=== PATIENT | male | born 1980 | race Caucasian/White ===

== ENCOUNTER 2020-01-23 19:20 | Emergency (ER) | payer OTHER ==
[~2020-01-23] VITALS: Ht 170.2 cm; Wt 69.7 kg
[2020-01-23 19:26] VITALS: BP 151/108
--- NOTE | 2020-01-23 19:33 | NUR ---
LEFT WRIST SPLINT IN PLACE. DENIES NUMBNESS/TINGLING. CAPILLARY REFILL LESS THAN 3 SECONDS.
--- NOTE | 2020-01-23 20:20 | NUR ---
PT AMBULATES FROM LOBBY TO ROOM WITH STEADY GAIT.
[2020-01-23] MEDS ORDERED: HYDROmorphone 1 MG/ML, 1ML INJ ONE ×2 (21:21→22:03)
[2020-01-23] MEDS ORDERED: LIDOCAINE-MPF 1%, 5ML ONE ×2 (21:21→23:05)
[2020-01-23] MEDS ORDERED: LIDOCAINE-MPF 1%, 5ML INFIL ONE (21:30)
[2020-01-23] MEDS ORDERED: HYDROmorphone 1 MG/ML, 1ML INJ IM ONE ×2 (21:30→23:30)
--- NOTE | 2020-01-23 21:38 | NUR ---
PT MEDICATED PER MAR.
[2020-01-23] MEDS ORDERED: NEOSPORIN OINT. PKT 1 PACKET ONE (23:22)
--- NOTE | 2020-01-23 23:24 | NUR ---
PT SUTURED AND TECH AT BS FOR ORTHO CARE AT THIS TIME.
--- NOTE | 2020-01-23 23:49 | NUR ---
PT D/C WITH D/C SUMMARY AND SCRIPTS. ALL QUESTIONS ANSWERED. PT SIGNED NARCOTICS SHEET WHICH WAS PLACED WITH PT CHART. PT DENIES ANY OTHER NEEDS PERTAINING TO THIS VISIT. PT AMBULATES TO REGISTRATION DESK WITH STEADY GAIT FOR D/C HOME WITH BROTHER IN LAW.
== END 2020-01-23 23:55 | disposition home or self-care (01) ==
LOC: ED 23:00
DX: S61.522A Laceration with foreign body of left wrist, initial encounter (principal); S61.542A Puncture wound with foreign body of left wrist, initial encounter; G89.11 Acute pain due to trauma; F17.210 Nicotine dependence, cigarettes, uncomplicated; X58.XXXA Exposure to other specified factors, initial encounter; Y93.89 Activity, other specified; Y92.89 Other specified places as the place of occurrence of the external cause; Y99.8 Other external cause status
CPT/HCPCS: 10120; 96372; 99285; J1170; 12002; 99284